=== PATIENT | male | born 2000 | race African-American/Black ===

== ENCOUNTER 2025-01-27 10:28 | Emergency (ER) | payer OTHER ==
[~2025-01-27] VITALS: Ht 190.5 cm; Wt 154.7 kg
[2025-01-27] MEDS ORDERED: CEPH500T PO (10:37)
--- NOTE | 2025-01-27 10:38 | ERN ---
ED Note History of Present Illness Stated Complaint: LACERATION Chief Complaint: Laceration/Avulsion Time Seen by MD: 10:31 Dictation: 24 YEAR OLD MALE HERE WITH A LACERATION TO THE LEFT HAND ONSET WAS TUESDAY WHILE HE WAS WORKING IN [place]. HE STATES HE DID NOT GO TO A HOSPITAL [place] AND WAITED UNTIL [facility] SEE[facility] THREE DAYS LATER. HE HAS NO FEVER NO CHILLS NO HISTORY OF DIABETES THE LACERATION IS HEALING BY SECONDARY INTENTION AND HE WAS MADE AWARE THAT NO REPAIR POSSIBLE AT THIS TIME. STATES HE HAS NO DOCTOR BECAUSE HE IS ALWAYS ON THE ROAD. I ADVISED HIM I WOULD PUT HIM ON SOME KEFLEX AND HAVE HIM FOLLOW UP WITH WHOEVER WANTED TO IN THE FUTURE. NEUROVASCULAR CMS INTACT TO LEFT HAND AND THUMB. Past Medical History RN Note Reviewed/Agreed w/PFSH: Yes Review of System Dictation CONSTITUTIONAL: NEGATIVE EXCEPT FOR HPI HEAD/FACE: NEGATIVE EXCEPT FOR HPI EENT: NEGATIVE EXCEPT FOR HPI RESPIRATORY: NEGATIVE EXCEPT FOR HPI GASTROINTESTINAL/ABDOMINAL: NEGATIVE EXCEPT FOR HPI GENITOURINARY: NEGATIVE EXCEPT FOR HPI MUSCULOSKELETAL: NEGATIVE EXCEPT FOR HPI INTEGUMENTARY: NEGATIVE EXCEPT FOR HPI LACERATION LEFT THUMB NEUROLOGICAL/PSYCH: NEGATIVE EXCEPT FOR HPI HEMATOLOGIC/LYMPHATIC: NEGATIVE EXCEPT FOR HPI ALL SYSTEMS NEGATIVE, EXCEPT NOTED ABOVE. 13 POINT REVIEW OF SYSTEMS ASSESSED AND ALL NEGATIVE EXCEPT FOR ABOVE. Physical Exam Dictation VITAL SIGNS REVIEWED GENERAL APPEARANCE: ALERT, ORIENTED X 3, NO ACUTE DISTRESS, WELL DEVELOPED, NOURISHED. OB/NO PAIN HEAD AND FACE: NON-TRAUMATIC. EYES: PERRL, PINK CONJUNCTIVAS, EYELID NO TRAUMA, ANTERIOR CHAMBER WITH ARCUS SENILIS. EARS: PINNAS INTACT AND NO SIGNS OF TRAUMA OR ERYTHEMA EAR CANALS CLEAR AND NO DISCHARGE TM NO ERYTHEMA NOSE: NO DISCHARGE, NO BLEEDING. OROPHARYNX: MOUTH NORMAL, TONGUE PINK, PHARYNX CLEAR,NO ERYTHEMA, TONSILS NO EXUDATES, NO ABSCESSES NOTED, MUCOUS MEMBRANE MOIST NECK: SUPPLE, NON-TENDER, NO THYROMEGALY, NO MASSES, NO JVD, NO BRUITS BREAST:DEFERRED CHEST:NO TENDERNESS, NO CREPITUS, NO PARADOXICAL MOVEMENT, NO RETRACTIONS LUNGS:CLEAR, WELL-VENTILATED, SYMMETRIC, NO RALES, NO WHEEZING, NO RHONCHI, NO STRIDOR, GOOD BREATH SOUNDS BILATERALLY HEART: REGULAR RATE, REGULAR RHYTHM, NO MURMUR, NO GALLOPS VASCULAR: NO PERIPHERAL EDEMA, ABDOMEN: SOFT, POSITIVE BOWEL SOUNDS, NONDISTENDED, NO GUARDING, NONTENDER, NO REBOUND, NO MASSES NO HEPATOMEGALY, NO SPLENOMEGALY, NO MAN'S SIGN, NO HERNIAS. RECTAL: DEFERRED GENITAL: DEFERRED NEUROLOGICAL: NORMAL SPEECH, MOTOR FUNCTION INTACT, SENSORY FUNCTION INTACT MUSCULOSKELETAL: NECK NONTENDER, FULL RANGE OF MOTION, BACK NONTENDER, FULL RANGE OF MOTION, EXTREMITIES: NONTENDER, FULL RANGE OF MOTION NEUROVASCULAR CMS INTACT TO LEFT HAND AND THUMB SKIN: COLOR PINK, GRANULATING LACERATION TO LEFT THENAR APPROXIMATELY 4.5 CM. WOUND BED IS DRY AND EDGES OR APPROXIMATING BY SECONDARY INTENTION. LYMPHATIC: DEFERRED Results (Laboratory/Radiology) Labs Reviewed?: Yes ED Course ED Course NO LABS OR IMAGING INDICATED. PATIENT WILL BE GIVEN KEFLEX AND TOLD TO SEE HIS DOCTOR WHEREVER HE FINDS HOME. Medical Decision Making MDM MEDICAL DECISION-MAKING BASED ON EMPIRIC TREATMENT FOR A GRANULATING LACERATION THAT IS THREE DAYS AGO. PATIENT HAS NO FEVER NO CHILLS AND FULL RANGE OF MOTION WITH NEUROVASCULAR CMS INTACT TO LEFT HAND. PROVIDED KEFLEX AND TOLD TO SEE HIS DOCTOR DX & DISP Disposition: Discharge Departure Impression: Primary Impression: Laceration of left hand with delay in treatment Condition: Stable Scripts Cephalexin (Cephalexin) 500 Mg Tablet 1 TAB PO QID for 10 Days, #40 TAB 0 Refills Prov: JARED ANDERSON [employer] TE[employer] LEADER 01/27/25 Additional Instructions: FOLLOW-UP WITH PRIMARY CARE PROVIDER IN 1 TO 2 DAYS. TAKE MEDICATIONS DIRECTED HERE IN THE EMERGENCY ROOM. OKAY TO CONTINUE HOME MEDICATIONS UNLESS OTHERWISE DISCUSSED DURING YOUR VISIT IN THE EMERGENCY ROOM TODAY. RETURN TO YOUR NEAREST EMERGENCY ROOM IF SYMPTOMS WORSEN OR IF THERE IS NO IMPROVEMENT. CALL 911 IF YOU NEED IMMEDIATE ASSISTANCE. TAKE TYLENOL OR MOTRIN [id number] NEEDED AND IF NO CONTRAINDICATIONS ARE PRESENT. INCREASE ORAL HYDRATION. A WOUND CULTURE OR URINE CULTURE WAS ORDERED HERE IN THE EMERGENCY ROOM DEPARTMENT PLEASE FOLLOW-UP WITH PRIMARY CARE PROVIDER AND ADVISE THEM TO GET REPEAT PORTS FROM OUR FACILITY. IF YOU HAD ANY ANA WRAP/SPLINTS THAT WERE APPLIED HERE, PLEASE DO NOT REMOVE THEM UNTIL YOU SEE YOUR PRIMARY CARE OR SPECIALTY. KEEP LACERATION REPAIRED COVERED. APPLY TRIPLE ANTIBIOTIC OINTMENT/[id number] 3 TIMES A DAY FOR FIVE DAYS. TAKE ANTIBIOTICS DIRECTED UNTIL GONE AND SEE YOUR PRIMARY CARE DOCTOR WHERE EVER HOME IS Time of Disposition: 10:35 I have reviewed the case, and I agree with, Diagnosis and Plan JARED ANDERSON NP Jan 27, 2025 10:38
[2025-01-27 11:21] VITALS: BP 126/73; PULSE 77; RESP 16; TEMP 98.1; O2SAT 98
== END 2025-01-27 11:28 | disposition home or self-care (01) ==
LOC: EDH 10:28
DX: S61.412A Laceration without foreign body of left hand, initial encounter (principal); X58.XXXA Exposure to other specified factors, initial encounter; Y93.89 Activity, other specified; Y92.89 Other specified places as the place of occurrence of the external cause; Y99.8 Other external cause status
CPT/HCPCS: 99283